=== PATIENT | male | born 1950 | race Caucasian/White ===

== ENCOUNTER 2024-09-14 17:11 | Emergency (ER) | payer OTHER ==
[~2024-09-14] VITALS: Ht 172.7 cm; Wt 78.0 kg
[2024-09-14 17:14] VITALS: O2SAT 97
[2024-09-14] MEDS ORDERED: AMPICILLIN SOD/SULBACTAM NA 3 G in SODIUM CHLORIDE 0.9% 100 ML IV STA (17:33)
[2024-09-14 18:25] LABS: BASOPHILS % 0.3 % (0.0-2.0); EOSINOPHILS % 0.8 % (0.0-5.0); HEMOGLOBIN. 12.9 g/dL (14.0-18.0); LYMPHOCYTES % 31.8 % (20.0-50.0); MEAN CORPUSCULAR HGB CONC 33.1 g/dL (31.0-37.0); MEAN CORPUSCULAR VOLUME 96.4 fL (80.0-94.0); MEAN PLATELET VOLUME 8.6 fl (7.4-10.4); MONOCYTES % 8.1 % (2.0-8.0); PLATELET 293 x1000/uL (130-400); RED BLOOD CELL COUNT 4.04 mill/uL (4.7-6.1); RED CELL DISTRIBUTION WIDTH 14.1 % (11.6-14.6); WHITE BLOOD COUNT 5.5 x1000/uL (4.5-11.0)
[2024-09-14] MEDS: AMPICILLIN SOD/SULBACTAM NA 3 G in SODIUM CHLORIDE 0.9% 100 ML IV SCH (18:27)
[2024-09-14 18:36] LABS: CARBON DIOXIDE 32 mEq/L (21-32); CHLORIDE 105 mEq/L (98-107); POTASSIUM 4.2 mEq/L (3.5-5.1); SODIUM 144 mEq/L (136-145)
[2024-09-14 18:37] LABS: CALCIUM 9.7 mg/dL (8.7-10.4)
[2024-09-14 18:41] LABS: CREATININE 0.8 mg/dL (0.6-1.3)
[2024-09-14 18:42] LABS: GLUCOSE 96 mg/dL (70-105); UREA NITROGEN BLOOD 17 mg/dL (9-23)
[2024-09-14 18:43] LABS: ETHANOL BLOOD < 10 mg/dL (<10); TROPONIN I HIGH SENSITIVITY < 4 ng/L (3.0-53)
[2024-09-14] MEDS: VANCOMYCIN 1.5GM/250ML IV NR (18:48)
[2024-09-14] MEDS: METHYLPREDNISOLONE SOD SUCC 125MG/2ML (ACT-O-VIAL) IV ONE (19:51)
[2024-09-14 19:53] LABS: BG BASE EXCESS 0.7 mmol/L (-2.0-3.0); BG CARBOXYHEMOGLOBIN 0.5 % (0.5-1.5); BG DEOXYHEMOGLOBIN 6.2 % (0.0-5.0); BG FRACTION INSPIRED OXYGEN 21; BG HCO3 ACT 25.9 mmol/L (21.0-28.0); BG METHEMOGLOBIN 0.3 % (0.5-1.5); BG OXYGEN SATURATION 93.8 % (94.0-98.0); BG PCO2 43.6 mmHg (35.0-48.0); BG PH 7.392 (7.350-7.450); BG PO2 70.3 mmHg (83.0-108.0); BG SAMPLE SITE LEFT RADIAL; BG TOTAL HEMOGLOBIN 13.3 g/dL (13.5-17.5); BG VENT MODE ROOM AIR
[2024-09-14] MEDS: IPRATROPIUM/ALBUTEROL 0.5-3(2.5)MG/3ML NEB HHN ONE (20:01)
[2024-09-14] MEDS: LIDOCAINE HCL 4% (40MG/ML) SOLN 50ML TOP ONE (22:09)
[2024-09-14 22:10] VITALS: O2SAT 100
[2024-09-14] MEDS: KETAMINE HCL 50 MG/ML 10ML IV ONE (22:10)
[2024-09-14] MEDS: SUCCINYLCHOLINE CHLORIDE 200MG/10ML IV ONE (22:10)
[2024-09-14 23:59] VITALS: TEMP 36.6
[2024-09-15 00:11] VITALS: BP 150/90; PULSE 88; RESP 18; O2SAT 98
== END 2024-09-15 00:26 | disposition short-term general hospital (02) ==
LOC: ER 17:11
DX: F03.90 Unspecified dementia, unspecified severity, without behavioral disturbance, psychotic disturbance, mood disturbance, and anxiety (principal); J96.01 Acute respiratory failure with hypoxia; E78.00 Pure hypercholesterolemia, unspecified; Z86.73 Personal history of transient ischemic attack (TIA), and cerebral infarction without residual deficits; Z88.5 Allergy status to narcotic agent
CPT/HCPCS: 80048; 80320; 82962; 83880; 85025; 87040; 84484; 87077; 36415; 84145; 71045; 70450; 70490; 71250; 82805; 82375; 93005; 96367; 96365; 96375; 99291; 99292; 36600; J3370; J0295; J3490; J2919; J0330; Z7610 ×3; J7050; G0480